=== PATIENT | female | born 1975 | race Caucasian/White ===

== ENCOUNTER 2019-03-14 20:37 | Emergency (ER) | payer OTHER ==
[~2019-03-14] VITALS: Ht 160 cm; Wt 99.8 kg
[2019-03-14 20:45] VITALS: BP_SYST 162
[2019-03-14 23:47] VITALS: BP_SYST 138
== END 2019-03-14 23:49 | disposition home or self-care (01) ==
LOC: SED 20:37
DX: M25.561 Pain in right knee (principal)
CPT/HCPCS: 73564; 93971; 99284

== ENCOUNTER 2023-02-14 15:55 | Emergency (ER) | payer OTHER ==
[~2023-02-14] VITALS: Ht 160 cm; Wt 102.1 kg
[2023-02-14 16:00] VITALS: BP_SYST 146; PULSE 110; RESP 18; TEMP 96.3; O2SAT 98
[2023-02-14] MEDS ORDERED: PRED20TA PO (16:12)
[2023-02-14] MEDS ORDERED: IBUP-1971 PO (16:12)
[2023-02-14] MEDS ORDERED: TRAM50TA2 PO (16:12)
[2023-02-14] MEDS ORDERED: predniSONE 20 MG TABLET PO ONE (16:15)
[2023-02-14] MEDS ORDERED: KETOROLAC TROMETHAMINE 60 MG/2 ML VIAL IM ONE (16:15)
[2023-02-14 16:55] VITALS: BP_SYST 135; PULSE 85; RESP 20; TEMP 98; O2SAT 99
== END 2023-02-14 16:56 | disposition home or self-care (01) ==
LOC: SED 15:55
DX: G89.29 Other chronic pain (principal); M25.561 Pain in right knee; Z79.899 Other long term (current) drug therapy
CPT/HCPCS: 99283; 29505; 96372; J7512; J1885

== ENCOUNTER 2023-07-14 21:27 | Emergency (ER) | payer OTHER ==
[~2023-07-14 21:27] MED LIST: IBUP-1971 PO; PRED20TA PO; TRAM50TA2 PO
== END 2023-07-14 23:07 | disposition left against medical advice (07) ==
LOC: SED 21:27
DX: R05.9 Cough, unspecified (principal); Z53.21 Procedure and treatment not carried out due to patient leaving prior to being seen by health care provider

== ENCOUNTER 2023-12-01 09:24 | Emergency (ER) | payer OTHER ==
[~2023-12-01] VITALS: Ht 160 cm; Wt 99.8 kg
[2023-12-01 09:25] VITALS: BP_SYST 137; PULSE 101; RESP 18; TEMP 97.8; O2SAT 96
[2023-12-01 10:04] LABS: BASOPHILS # (AUTO) 0.1 K/uL (0.0-0.2); BASOPHILS % (AUTO) 0.4 % (0.0-2.0); EOSINOPHILS # (AUTO) 0.1 K/uL (0.0-0.4); EOSINOPHILS % (AUTO) 0.3 % (0.0-4.0); HEMATOCRIT 37.8 % (36-48); HEMOGLOBIN 12.3 g/dL (12.0-16.0); LYMPHOCYTES # (AUTO) 2.9 K/uL (1.0-5.5); LYMPHOCYTES % (AUTO) 14.1 % (20.5-51.5); MEAN CORPUSCULAR HEMOGLOBIN 26 pg (27-31); MEAN CORPUSCULAR HGB CONC 33 % (32-36); MEAN CORPUSCULAR VOLUME 78 fL (79.0-98.0); MONOCYTES % (AUTO) 9.7 % (1.7-9.3); NEUTROPHILS # (AUTO) 15.5 K/uL (1.8-7.7); PLATELET COUNT (AUTO) 460 K/uL (130-430); RED BLOOD CELL COUNT(AUTO) 4.85 MIL/uL (4.2-6.2); RED CELL DISTRIBUTION WIDTH 16.4 % (9.0-15.0); WHITE BLOOD COUNT (AUTO) 20.5 K/uL (4.8-10.8)
[2023-12-01 10:17] LABS: PROTHROMBIN TIME 10.1 SECS (9.5-12.5)
[2023-12-01 10:19] LABS: ALANINE AMINOTRANSFERASE 18 U/L (12-78); ALBUMIN 2.8 g/dL (3.4-4.8); ANION GAP 11 (5-15); ASPARTATE AMINOTRANSFERASE 14 U/L (10-37); CALCIUM 8.3 mg/dL (8.4-11.0); CARBON DIOXIDE 25 mmol/L (23-29); CHLORIDE 103 mmol/L (98-107); CREATININE 0.98 mg/dL (0.55-1.30); GFR AFRICAN AMERICAN 79 mL/min (>90); GFR NON AFRICAN-AMERICAN 65 mL/min (>90); GLUCOSE 127 mg/dL (74-106); POTASSIUM 3.1 mmol/L (3.5-5.1); SODIUM SERUM 139 mmol/L (136-145); TOTAL BILIRUBIN 0.4 mg/dL (0.0-1.0); TOTAL PROTEIN, SERUM 7.4 g/dL (6.4-8.3); UREA NITROGEN, BLOOD 9 mg/dL (8-21)
[2023-12-01 10:23] LABS: COVID19 ANTIGEN SOFIA FIA NEGATIVE (NEGATIVE)
[2023-12-01 10:24] LABS: INFLUENZA TYPE A Negative (NEGATIVE); INFLUENZA TYPE B NEGATIVE (NEGATIVE)
[2023-12-01 10:39] LABS: BILIRUBIN,URINE NEGATIVE (NEGATIVE); BLOOD, URINE TRACE (NEGATIVE); CLARITY/URINE SLIGHTLY HAZY (CLEAR); COLOR,URINE YELLOW (YELLOW); GLUCOSE,URINE NEGATIVE (NEGATIVE); KETONES,URINE NEGATIVE (NEGATIVE); PROTEIN URINE NEGATIVE (NEGATIVE)
[2023-12-01 10:40] LABS: LEUKOCYTE ESTERASE ,URINE 1+ (NEGATIVE); NITRITE, URINE POSITIVE (NEGATIVE); UROBILINOGEN,URINE 0.2 (0.2-1.0)
[2023-12-01 10:44] LABS: BACTERIA,URINE MODERATE /HPF (None Seen)
[2023-12-01 10:47] LABS: BILIRUBIN,DIRECT 0.1 mg/dL (0.0-0.3)
[2023-12-01] MEDS ORDERED: HYDR-3917 PO (11:32)
[2023-12-01] MEDS ORDERED: IBUP-1969 PO (11:32)
[2023-12-01] MEDS ORDERED: NITR-85 PO (11:35)
[2023-12-01 11:57] LABS: NEUTROPHILS % (AUTO) 75.5 % (40.0-70.0)
[2023-12-01] MEDS: cefTRIAXone 1 GM in LIDOCAINE 1%, 20 ML MDV 2.1 ML IM ONE (12:03)
[2023-12-01 12:10] VITALS: BP_SYST 122; PULSE 82; RESP 18; TEMP 97.5; O2SAT 96
== END 2023-12-01 12:13 | disposition home or self-care (01) ==
LOC: SED 09:24
DX: N12 Tubulo-interstitial nephritis, not specified as acute or chronic (principal); Z20.822 Contact with and (suspected) exposure to COVID-19; R30.0 Dysuria; Z79.899 Other long term (current) drug therapy; Z79.2 Long term (current) use of antibiotics
CPT/HCPCS: 99285; 71045; 87426; 80076; 80048; 81001; 85025; 85610; 85730; 87086; 87186; 84484; 36415; 93005; 96372; 83605; 87804 ×2; 82397; J0696; 81000; 81015; J2001

== ENCOUNTER 2024-02-26 19:26 | Emergency (ER) | payer OTHER ==
[~2024-02-26] VITALS: Ht 160 cm; Wt 108.9 kg
[~2024-02-26 19:26] MED LIST changes: +IBUP-1969 PO; +NITR-85 PO
[2024-02-26 19:47] VITALS: BP_SYST 135; PULSE 85; RESP 20; TEMP 97.5; O2SAT 100
[2024-02-26 20:34] LABS: BILIRUBIN,URINE NEGATIVE (NEGATIVE); BLOOD, URINE NEGATIVE (NEGATIVE); CLARITY/URINE CLEAR (CLEAR); COLOR,URINE YELLOW (YELLOW); GLUCOSE,URINE NEGATIVE (NEGATIVE); KETONES,URINE NEGATIVE (NEGATIVE); LEUKOCYTE ESTERASE ,URINE NEGATIVE (NEGATIVE); NITRITE, URINE NEGATIVE (NEGATIVE); PROTEIN URINE NEGATIVE (NEGATIVE); UROBILINOGEN,URINE 0.2 (0.2-1.0)
[2024-02-26] MEDS: KETOROLAC TROMETHAMINE 60 MG/2 ML VIAL IM ONE (21:14)
[2024-02-26] MEDS ORDERED: NAPR-1172 PO (21:14)
[2024-02-26 21:17] VITALS: BP_SYST 123; PULSE 62; RESP 18; TEMP 97.5; O2SAT 100
== END 2024-02-26 21:17 | disposition home or self-care (01) ==
LOC: SED 19:26
DX: S39.012A Strain of muscle, fascia and tendon of lower back, initial encounter (principal); Z79.899 Other long term (current) drug therapy; Z79.2 Long term (current) use of antibiotics; Z79.52 Long term (current) use of systemic steroids; X50.9XXA Other and unspecified overexertion or strenuous movements or postures, initial encounter; Y93.89 Activity, other specified; Y92.89 Other specified places as the place of occurrence of the external cause; Y99.8 Other external cause status
CPT/HCPCS: 99283; 81001; 96372; 81003; J1885

== ENCOUNTER 2024-03-06 09:30 | Emergency (ER) | payer OTHER ==
[~2024-03-06] VITALS: Ht 160 cm; Wt 108.9 kg
[~2024-03-06 09:30] MED LIST changes: +NAPR-1172 PO
[2024-03-06 09:35] VITALS: BP_SYST 164; PULSE 74; RESP 20; TEMP 98.3; O2SAT 97
[2024-03-06] MEDS: ONDANSETRON HCL 4 MG/2 ML VIAL IVP ONE (10:50)
[2024-03-06] MEDS: KETOROLAC TROMETHAMINE 30 MG VIAL IVP ONE (10:50)
[2024-03-06] MEDS: NACL 0.9% 1,000 ML IV ONE (10:51)
[2024-03-06 11:11] LABS: BILIRUBIN,URINE NEGATIVE (NEGATIVE); BLOOD, URINE 1+ (NEGATIVE); CLARITY/URINE CLEAR (CLEAR); COLOR,URINE YELLOW (YELLOW); GLUCOSE,URINE NEGATIVE (NEGATIVE); KETONES,URINE NEGATIVE (NEGATIVE); LEUKOCYTE ESTERASE ,URINE NEGATIVE (NEGATIVE); NITRITE, URINE NEGATIVE (NEGATIVE); PROTEIN URINE NEGATIVE (NEGATIVE); UROBILINOGEN,URINE 0.2 (0.2-1.0)
[2024-03-06 11:16] LABS: BASOPHILS % (AUTO) 0.4 % (0.0-2.0); EOSINOPHILS # (AUTO) 0.3 K/uL (0.0-0.4); HEMATOCRIT 43.3 % (36-48); LYMPHOCYTES # (AUTO) 3.9 K/uL (1.0-5.5); LYMPHOCYTES % (AUTO) 31.3 % (20.5-51.5); MEAN CORPUSCULAR HEMOGLOBIN 26 pg (27-31); MEAN CORPUSCULAR HGB CONC 32 % (32-36); MEAN CORPUSCULAR VOLUME 81 fL (79.0-98.0); MONOCYTES # (AUTO) 0.7 K/uL (0.0-1.0); MONOCYTES % (AUTO) 5.6 % (1.7-9.3); NEUTROPHILS # (AUTO) 7.5 K/uL (1.8-7.7); NEUTROPHILS % (AUTO) 60.7 % (40.0-70.0); PLATELET COUNT (AUTO) 432 K/uL (130-430); RED BLOOD CELL COUNT(AUTO) 5.33 MIL/uL (4.2-6.2); RED CELL DISTRIBUTION WIDTH 14.6 % (9.0-15.0); WHITE BLOOD COUNT (AUTO) 12.4 K/uL (4.8-10.8)
[2024-03-06 11:24] LABS: BACTERIA,URINE RARE /HPF (None Seen); MUCUS,URINE 1+ /LPF (None Seen); RBC,URINE 0-3 /HPF (0-3); WBC,URINE 0-3 /HPF (0-3)
[2024-03-06 11:40] LABS: ALBUMIN 3.1 g/dL (3.4-4.8); BILIRUBIN,DIRECT 0.1 mg/dL (0.0-0.3); CALCIUM 8.7 mg/dL (8.4-11.0); CREATININE 0.83 mg/dL (0.55-1.30); POTASSIUM 3.8 mmol/L (3.5-5.1); TOTAL BILIRUBIN 0.3 mg/dL (0.0-1.0); TOTAL PROTEIN, SERUM 6.8 g/dL (6.4-8.3)
[2024-03-06 12:00] LABS: INFLUENZA TYPE A Negative (NEGATIVE); INFLUENZA TYPE B NEGATIVE (NEGATIVE)
[2024-03-06] MEDS ORDERED: ONDA-8 TL (12:58)
[2024-03-06 13:30] VITALS: BP_SYST 130; PULSE 68; RESP 20; TEMP 97.2; O2SAT 99
== END 2024-03-06 13:18 | disposition home or self-care (01) ==
LOC: SED 09:30
DX: R10.9 Unspecified abdominal pain (principal); R11.2 Nausea with vomiting, unspecified; R19.7 Diarrhea, unspecified; R07.89 Other chest pain; F17.210 Nicotine dependence, cigarettes, uncomplicated; Z20.822 Contact with and (suspected) exposure to COVID-19; Z98.890 Other specified postprocedural states; Z79.899 Other long term (current) drug therapy; Z79.52 Long term (current) use of systemic steroids
CPT/HCPCS: 99285; 96374; 71045; 96361; 96375; 87426; 80076; 80048; 81001; 85025; 36415; 93005; 81025; 87804 ×2; J1885; J2405; J7030; 81000; 81015